=== PATIENT | male | born 1945 | race Caucasian/White ===

== ENCOUNTER 2021-07-01 15:49 | Emergency (ER) | payer MEDICAID ==
[~2021-07-01] VITALS: Ht 177.8 cm; Wt 68.2 kg
[2021-07-01 15:52] VITALS: BP 130/84
== END 2021-07-01 17:47 | disposition left against medical advice (07) ==
LOC: ER 15:50
DX: R07.81 Pleurodynia (principal)
CPT/HCPCS: 99281

== ENCOUNTER 2021-07-05 14:19 | Inpatient (IN) | payer MEDICARE, MEDICAID ==
[~2021-07-05] VITALS: Ht 170.2 cm; Wt 68.2 kg
[2021-07-05] MEDS ORDERED: heparin 10,000 units/1 ML INJ IV ONE (14:40)
[2021-07-05] MEDS ORDERED: aspirin 81mg tab.chew PO ONE (14:40)
[2021-07-05] MEDS ORDERED: heparin 25,000 UNIT/250ml bag 250 ML IV SCH (14:40)
--- NOTE | 2021-07-05 14:40 | NUR ---
Pt given initial NTG SL tab, next BP in 70's systolic. Fluid bolus initiated; NTG to be discontinued.
[2021-07-05] MEDS ORDERED: nitroGLYCERIN 0.4mg SUBLingual tab SL PRN (14:45)
[2021-07-05] MEDS ORDERED: heparin 10,000 units/1 ML INJ IV PRN (14:45)
[2021-07-05 14:48] LABS: BASOPHILS % (AUTO) 0.5 % (0-1); EOSINOPHILS # (AUTO) 0.1 X10'3 (0-0.9); EOSINOPHILS % (AUTO) 1.1 % (0-6); HEMATOCRIT 41.7 % (42.0-52.0); HEMOGLOBIN 14.1 g/dl (14.0-17.9); LYMPHOCYTES # (AUTO) 3.1 X10'3 (1.1-4.8); LYMPHOCYTES % (AUTO) 38.7 % (21-51); MEAN CORPUSCULAR HEMOGLOBIN 30.2 PG (27.0-31.0); MEAN CORPUSCULAR HGB CONC 33.9 g/dL (33.0-36.5); MEAN CORPUSCULAR VOLUME 89.2 FL (78-98); MEAN PLATELET VOLUME 8.3 FL (7.4-10.4); MONOCYTES # (AUTO) 0.5 X10'3 (0-0.9); MONOCYTES % (AUTO) 6.1 % (2-12); NEUTROPHILS # (AUTO) 4.2 X10'3 (1.8-7.7); NEUTROPHILS % (AUTO) 53.6 % (42-75); PLATELET COUNT 211 X10'3 (140-440); RED BLOOD COUNT 4.68 X10'6 (4.70-6.10); RED CELL DISTRIBUTION WIDTH 14.9 % (11.5-14.5); WHITE BLOOD COUNT 7.9 X10'3 (4.5-11.0)
[2021-07-05 15:00] LABS: ALANINE AMINOTRANSFERASE 20 U/L (12-78); ALBUMIN/GLOBULIN RATIO 0.7 (1.1-1.5); ALKALINE PHOSPHATASE 88 IU/L (46-116); ANION GAP 10 (8-16); ASPARTATE AMINO TRANSFERASE 38 U/L (10-37); BILIRUBIN,TOTAL 0.4 MG/DL (0.1-1.0); BLOOD UREA NITROGEN 16 MG/DL (7-18); BUN/CREATININE RATIO 15.2 (5.4-32.0); CALCIUM 8.9 MG/DL (8.5-10.1); CHLORIDE 106 MMOL/L (99-107); CREATININE 1.05 MG/DL (0.60-1.10); GLUCOSE 107 MG/DL (70-104); POTASSIUM 3.3 MMOL/L (3.5-5.1); SODIUM 145 MMOL/L (135-145); TOTAL CARBON DIOXIDE 29.5 MMOL/L (24-32); TOTAL PROTEIN 7.2 G/DL (6.4-8.2); eGFR 69 ML/MIN
[2021-07-05] MEDS ORDERED: ondansetron/PF 4mg/2ml inj IV ONE (15:00)
[2021-07-05 15:03] LABS: APTT 27 SECONDS (22-32)
[2021-07-05] MEDS ORDERED: LIDOCAINE 1% w/preservative (10 MG/ML) inj. 10mL VIAL ONE (15:06)
[2021-07-05] MEDS ORDERED: midazolam 1 mg/ML 2ml injection ONE (15:07)
[2021-07-05] MEDS ORDERED: fentaNYL/PF 50MCG/1 ML 2ML syringe ONE (15:07)
[2021-07-05] MEDS ORDERED: iohexol 350 MG/1 ML 200ml bottle ONE ×2 (15:07→16:14)
--- NOTE | 2021-07-05 15:18 | NUR ---
Pt to [facility] lab[facility]
[2021-07-05] MEDS ORDERED: heparin 1,000unit/ml 10ml vial 10 ML ONE (15:19)
[2021-07-05] MEDS ORDERED: verapamil 2.5 mg/ml inj IV ONE (15:19)
[2021-07-05] MEDS ORDERED: nitroGLYCERIN-Tridil 50MG/D5W 250 ML IV ONE (15:19)
[2021-07-05] MEDS ORDERED: heparin, porcine-25,000 units/D5-250ml premix IV ONE (15:30)
[2021-07-05] MEDS ORDERED: aspirin 81mg tab.chew ONE (15:30)
[2021-07-05] MEDS ORDERED: normal saline 1000ML IV soln ONE (15:30)
[2021-07-05] MEDS ORDERED: heparin 10,000 units/1 ML INJ ONE (15:30)
[2021-07-05] MEDS ORDERED: nitroGLYCERIN 0.4mg SUBLingual tab SL ONE (15:30)
[2021-07-05] MEDS ORDERED: ticagrelor 90mg tablet ONE (15:39)
[2021-07-05] MEDS ORDERED: NORepinephrine 1 mg/ml inj IV ONE ×2 (15:42→15:43)
[2021-07-05] MEDS ORDERED: iohexol 350 MG/ML 50ML vial IV ONE (16:26)
[2021-07-05] MEDS ORDERED: mag hydrox/Alum hydrox/simeth 30ml oral suspension PO PRN (16:55)
[2021-07-05] MEDS ORDERED: PERFLUTREN PROTEIN-A MICROSPHR (Optison) 0.22 MG/ML 3ML VIAL IV ONE (16:55)
[2021-07-05] MEDS ORDERED: magnesium 4gm in 100ml NS 100 ML IV PRN (16:55)
[2021-07-05] MEDS ORDERED: POTASSIUM BICARB 20meq eff tab 20 MEQ TABLET.EFF PO PRN ×2 (16:55)
[2021-07-05] MEDS ORDERED: acetaminophen 325mg tablet PO PRN (16:55)
[2021-07-05] MEDS ORDERED: potassium CL 10mEq/100ml bag 100 ML IV PRN (16:55)
[2021-07-05] MEDS ORDERED: ondansetron/PF 4mg/2ml inj IV PRN (16:55)
[2021-07-05] MEDS ORDERED: magnesium 2GM in 50ml NS 50 ML IV PRN (16:55)
[2021-07-05 17:30] VITALS: BP 106/56
[2021-07-05] MEDS ORDERED: insulin R INFUSION 1 ML IV SCH (17:30)
--- NOTE | 2021-07-05 17:30 | NUR ---
Patient in room PCU 3018. I have received report from chemical lab supervisor and had the opportunity to ask questions and assume patient care.
--- NOTE | 2021-07-05 17:45 | NUR ---
Started releasing the pressure in the band Q15M with 2 mLs.
[2021-07-05 18:00] VITALS: BP 112/56
--- NOTE | 2021-07-05 18:30 | NUR ---
Problems reprioritized. Patient report given, questions answered & plan of care reviewed with Kassy LUKE.
[2021-07-05] MEDS: nicotine 21mg patch - 24 hr TD SCH (19:00)
[2021-07-05] MEDS: HYDROcodone/acetaminophen 10/325mg tab PO SCH ×2 (20:00)
[2021-07-05] MEDS: docusate sod 100mg capsule PO SCH (20:00)
[2021-07-05] MEDS: K and/or MAG REPLACEMENT MC SCH (20:00)
[2021-07-05] MEDS ORDERED: NO HOME MEDS (21:46)
[2021-07-05 22:00] VITALS: BP 108/57
[2021-07-06 02:00] VITALS: BP 117/63
[2021-07-06] MEDS: HYDROcodone/acetaminophen 10/325mg tab PO SCH ×2 (02:00→02:49)
--- NOTE | 2021-07-06 06:15 | NUR ---
Patient in room PCU 3018. I have received report from Chico LUKE and had the opportunity to ask questions and assume patient care.
[2021-07-06] MEDS ORDERED: insulin regular, human inj. 100 UNITS in normal saline 100ml IV IV SCH (06:35)
[2021-07-06] MEDS ORDERED: HYDROcodone/acetaminophen 10/325mg tab PO PRN ×3 (06:35→06:40)
[2021-07-06 06:46] LABS: BASOPHILS % (AUTO) 0.2 % (0-1); EOSINOPHILS % (AUTO) 0.5 % (0-6); HEMATOCRIT 37.9 % (42.0-52.0); HEMOGLOBIN 12.4 g/dl (14.0-17.9); LYMPHOCYTES # (AUTO) 0.7 X10'3 (1.1-4.8); LYMPHOCYTES % (AUTO) 12.3 % (21-51); MEAN CORPUSCULAR HEMOGLOBIN 29.3 PG (27.0-31.0); MEAN CORPUSCULAR HGB CONC 32.7 g/dL (33.0-36.5); MEAN CORPUSCULAR VOLUME 89.6 FL (78-98); MEAN PLATELET VOLUME 8.9 FL (7.4-10.4); MONOCYTES # (AUTO) 0.4 X10'3 (0-0.9); MONOCYTES % (AUTO) 7.5 % (2-12); NEUTROPHILS # (AUTO) 4.7 X10'3 (1.8-7.7); NEUTROPHILS % (AUTO) 79.5 % (42-75); PLATELET COUNT 135 X10'3 (140-440); RED BLOOD COUNT 4.22 X10'6 (4.70-6.10); RED CELL DISTRIBUTION WIDTH 15.3 % (11.5-14.5); WHITE BLOOD COUNT 5.9 X10'3 (4.5-11.0)
--- NOTE | 2021-07-06 06:47 | NUR ---
Problems reprioritized. Patient report given, questions answered & plan of care reviewed with Chase.
[2021-07-06 07:00] VITALS: BP 114/65
[2021-07-06 07:01] LABS: ALANINE AMINOTRANSFERASE 40 U/L (12-78); ALBUMIN 2.5 G/DL (3.4-5.0); ALBUMIN/GLOBULIN RATIO 0.7 (1.1-1.5); ALKALINE PHOSPHATASE 95 IU/L (46-116); ANION GAP 3 (8-16); ASPARTATE AMINO TRANSFERASE 126 U/L (10-37); BILIRUBIN,TOTAL 0.4 MG/DL (0.1-1.0); BLOOD UREA NITROGEN 14 MG/DL (7-18); BUN/CREATININE RATIO 14.6 (5.4-32.0); CALCIUM 7.8 MG/DL (8.5-10.1); CHLORIDE 111 MMOL/L (99-107); CHOL/HDL RATIO 3.5 (0.00-4.99); CHOLESTEROL 155 MG/DL (0-200); CREATININE 0.96 MG/DL (0.60-1.10); GLUCOSE 103 MG/DL (70-104); HDL CHOLESTEROL 44 MG/DL (35-60); LDL CHOLESTEROL 91 MG/DL (50-100); MAGNESIUM 2.1 MG/DL (1.5-2.4); POTASSIUM 3.8 MMOL/L (3.5-5.1); SODIUM 144 MMOL/L (135-145); TOTAL PROTEIN 6.2 G/DL (6.4-8.2); TRIGLYCERIDES 85 MG/DL (20-135); eGFR 76 ML/MIN
--- NOTE | 2021-07-06 07:15 | NUR ---
Paged Dr. Rees about clarification about an order for insulin gtt. Dr. Rees called back and ordered to please cancelled the insulin gtt order.
[2021-07-06] MEDS ORDERED: ticagrelor 90mg tablet PO SCH (08:00)
[2021-07-06] MEDS ORDERED: aspirin 81mg tab.chew PO ONE (08:00)
[2021-07-06] MEDS: K and/or MAG REPLACEMENT MC SCH ×2 (08:00→20:00)
[2021-07-06] MEDS: docusate sod 100mg capsule PO SCH ×2 (08:23→20:57)
[2021-07-06] MEDS: atorvastatin 20mg tablet PO SCH (08:24)
[2021-07-06] MEDS: nicotine 21mg patch - 24 hr TD SCH (08:24)
[2021-07-06] MEDS: ticagrelor 90mg tablet PO SCH ×2 (08:24→20:57)
[2021-07-06] MEDS ORDERED: albuterol 2.5 MG/3 ML nebule NEB PRN (08:50)
[2021-07-06] MEDS ORDERED: ASPI-1071 PO (10:03)
[2021-07-06] MEDS ORDERED: ATOR20TA66 PO (10:03)
[2021-07-06] MEDS ORDERED: TICA90TA PO (10:03)
[2021-07-06 11:00] VITALS: BP 112/59
[2021-07-06] MEDS ORDERED: ipratropium/albuterol 3ml nebule NEB SCH (11:00)
[2021-07-06] MEDS: metoprolol tartrate 25mg tablet PO SCH ×2 (11:50→20:57)
[2021-07-06 15:00] VITALS: BP 113/55
[2021-07-06] MEDS ORDERED: LORazepam 1 MG tablet PO PRN (15:40)
[2021-07-06 18:00] VITALS: BP 102/49
--- NOTE | 2021-07-06 18:24 | NUR ---
Problems reprioritized. Patient report given, questions answered & plan of care reviewed with Jorge LUKE.
--- NOTE | 2021-07-06 18:40 | NUR ---
Patient in room PCU 3018. I have received report from MARLY Miller and had the opportunity to ask questions and assume patient care.
[2021-07-06] MEDS ORDERED: budesonide 0.5mg/2ml UD nebule IH SCH (20:00)
[2021-07-06] MEDS: HYDROcodone/acetaminophen 10/325mg tab PO PRN (21:00)
[2021-07-07 00:44] VITALS: BP 135/67
[2021-07-07] MEDS: HYDROcodone/acetaminophen 10/325mg tab PO PRN (02:18)
--- NOTE | 2021-07-07 04:55 | NUR ---
Patient up of and on all night, says he can't sleep, worried about not being discharged in the morning and seems anxious. I just gave him Ativan 0.25 PO and will monitor.
--- NOTE | 2021-07-07 06:07 | NUR ---
Problems reprioritized. Patient report given, questions answered & plan of care reviewed with MARLY Ruiz.
--- NOTE | 2021-07-07 06:33 | NUR ---
Patient in room PCU 3018. I have received report from Amber LUKE and had the opportunity to ask questions and assume patient care.
[2021-07-07 06:55] LABS: BASOPHILS % (AUTO) 0.2 % (0-1); EOSINOPHILS % (AUTO) 0.4 % (0-6); HEMATOCRIT 39.1 % (42.0-52.0); HEMOGLOBIN 13.2 g/dl (14.0-17.9); LYMPHOCYTES # (AUTO) 0.9 X10'3 (1.1-4.8); LYMPHOCYTES % (AUTO) 12.1 % (21-51); MEAN CORPUSCULAR HEMOGLOBIN 29.8 PG (27.0-31.0); MEAN CORPUSCULAR HGB CONC 33.7 g/dL (33.0-36.5); MEAN CORPUSCULAR VOLUME 88.5 FL (78-98); MEAN PLATELET VOLUME 8.9 FL (7.4-10.4); MONOCYTES # (AUTO) 0.4 X10'3 (0-0.9); MONOCYTES % (AUTO) 5.2 % (2-12); NEUTROPHILS # (AUTO) 6.4 X10'3 (1.8-7.7); NEUTROPHILS % (AUTO) 82.1 % (42-75); PLATELET COUNT 170 X10'3 (140-440); RED BLOOD COUNT 4.41 X10'6 (4.70-6.10); WHITE BLOOD COUNT 7.8 X10'3 (4.5-11.0)
[2021-07-07 07:00] VITALS: BP 145/82
[2021-07-07] MEDS: metoprolol tartrate 25mg tablet PO SCH (07:34)
[2021-07-07] MEDS: atorvastatin 20mg tablet PO SCH (07:35)
[2021-07-07] MEDS: ticagrelor 90mg tablet PO SCH (07:35)
[2021-07-07] MEDS: docusate sod 100mg capsule PO SCH (07:35)
[2021-07-07] MEDS: nicotine 21mg patch - 24 hr TD SCH (07:35)
[2021-07-07 07:44] LABS: ALANINE AMINOTRANSFERASE 35 U/L (12-78); ALBUMIN 2.8 G/DL (3.4-5.0); ALBUMIN/GLOBULIN RATIO 0.7 (1.1-1.5); ALKALINE PHOSPHATASE 104 IU/L (46-116); ANION GAP 5 (8-16); ASPARTATE AMINO TRANSFERASE 74 U/L (10-37); BILIRUBIN,TOTAL 0.6 MG/DL (0.1-1.0); BLOOD UREA NITROGEN 10 MG/DL (7-18); BUN/CREATININE RATIO 11.6 (5.4-32.0); CALCIUM 8.3 MG/DL (8.5-10.1); CHLORIDE 106 MMOL/L (99-107); CREATININE 0.86 MG/DL (0.60-1.10); GLUCOSE 91 MG/DL (70-104); MAGNESIUM 1.9 MG/DL (1.5-2.4); POTASSIUM 3.3 MMOL/L (3.5-5.1); SODIUM 140 MMOL/L (135-145); TOTAL CARBON DIOXIDE 28.8 MMOL/L (24-32); TOTAL PROTEIN 6.9 G/DL (6.4-8.2); eGFR 87 ML/MIN
[2021-07-07] MEDS: K and/or MAG REPLACEMENT MC SCH (08:00)
[2021-07-07] MEDS ORDERED: aspirin 81mg, enteric-coated 1 TAB TABLET.DR PO SCH (08:00)
[2021-07-07] MEDS ORDERED: spironolactone 25 MG tablet PO SCH (08:30)
[2021-07-07] MEDS ORDERED: EMPAGLIFLOZIN 10 MG TABLET PO SCH (08:30)
[2021-07-07] MEDS ORDERED: sacubitril/valsartan 24mg-26mg tablet PO SCH (08:30)
--- NOTE | 2021-07-07 09:54 | NUR ---
patient refusing tele and took out IV
[2021-07-07] MEDS ORDERED: EMPA10TA PO (10:44)
[2021-07-07] MEDS ORDERED: SPIR25TA PO (10:44)
[2021-07-07] MEDS ORDERED: SACU1TAB PO (10:44)
[2021-07-07] MEDS ORDERED: NITR0.4T51 SL (10:44)
[2021-07-07] MEDS ORDERED: NICO-687 TD (10:44)
[2021-07-07] MEDS ORDERED: COR3.125T PO (10:44)
--- NOTE | 2021-07-07 10:53 | NUR ---
Page Sent promotional table spacer PAGER ID: [phone] MESSAGE: [id number] Jenkins. current vitals - temp 98.1, HR 62, 18 RR, 90% RA, 125/40. Sara @[phone]
[2021-07-07 11:00] VITALS: BP 125/70
--- NOTE | 2021-07-07 12:33 | NUR ---
nicotine patch removed prior to DC
--- NOTE | 2021-07-07 13:43 | NUR ---
Patient was DC to home with . picked up patient in a private vehicle. PIV was removed with cannula intact. RX were called into [facility]. DC instructions and warning s/s were reviewed with patient and and both verbalized understanding. Patient was alert, oriented, and appropriate at time of dc . Patient was wheeled to front of building where picked up .
[2021-07-07] MEDS ORDERED: carVEDilol 3.125mg tablet PO SCH (20:00)
== END 2021-07-07 12:57 | disposition home or self-care (01) | DRG 246 ==
LOC: ER 14:20 → PCU 3S 16:59
PROVIDERS: ADMIT Family Medicine; ATTEND Family Medicine
PROC: 4A023N7 Measurement of Cardiac Sampling and Pressure, Left Heart, Percutaneous Approach (ICD-10-PCS; principal; 2021-07-05)
PROC: 027035Z Dilation of Coronary Artery, One Artery with Two Drug-eluting Intraluminal Devices, Percutaneous Approach (ICD-10-PCS; 2021-07-05)
PROC: B2111ZZ Fluoroscopy of Multiple Coronary Arteries using Low Osmolar Contrast (ICD-10-PCS; 2021-07-05)
DX: I21.19 ST elevation (STEMI) myocardial infarction involving other coronary artery of inferior wall (principal); I50.21 Acute systolic (congestive) heart failure; I42.0 Dilated cardiomyopathy; I25.10 Atherosclerotic heart disease of native coronary artery without angina pectoris; E87.6 Hypokalemia; E78.5 Hyperlipidemia, unspecified; I25.5 Ischemic cardiomyopathy; I95.9 Hypotension, unspecified; M47.892 Other spondylosis, cervical region; E78.00 Pure hypercholesterolemia, unspecified; M47.896 Other spondylosis, lumbar region; F17.210 Nicotine dependence, cigarettes, uncomplicated; Z79.02 Long term (current) use of antithrombotics/antiplatelets; Z79.82 Long term (current) use of aspirin; Z79.84 Long term (current) use of oral hypoglycemic drugs; Z71.6 Tobacco abuse counseling
CPT/HCPCS: 93306; 93458; 99291; C9606; 36415; 71045; 80053; 80061; 83735; 83880; 84484; 85025; 85610; 85730; 93005; 97116; 97161; 97530; A4620; C1725; C1751; C1769; C1874; C1892; C1894; G0378; J1644; J2250; J2405; J3010; J3490; J7030; Q9967

== ENCOUNTER 2021-08-06 06:40 | Emergency (ER) | payer MEDICARE, MEDICAID ==
[~2021-08-06] VITALS: Ht 177.8 cm; Wt 63.6 kg
[~2021-08-06 06:40] MED LIST: ASPI-1071 PO; ATOR20TA66 PO; COR3.125T PO; EMPA10TA PO; NICO-687 TD; NITR0.4T51 SL; SACU1TAB PO; SPIR25TA PO; TICA90TA PO
[2021-08-06] MEDS ORDERED: HYDROcodone/acetaminophen 10/325mg tab PO ONE (08:30)
[2021-08-06] MEDS ORDERED: orphenadrine citrate 60mg/2ml inj. IM ONE (08:30)
--- NOTE | 2021-08-06 08:30 | NUR ---
Dr. Mancini at bedside.
--- NOTE | 2021-08-06 08:41 | NUR ---
Pt to xray.
[2021-08-06] MEDS ORDERED: HYDR-3972 PO (09:47)
[2021-08-06 10:03] VITALS: BP 123/72
== END 2021-08-06 10:07 | disposition home or self-care (01) ==
LOC: ER 06:40
DX: S32.000A Wedge compression fracture of unspecified lumbar vertebra, initial encounter for closed fracture (principal); S09.90XA Unspecified injury of head, initial encounter; M54.50 Low back pain, unspecified; Z79.82 Long term (current) use of aspirin; Z79.899 Other long term (current) drug therapy; W19.XXXA Unspecified fall, initial encounter; Y93.89 Activity, other specified; Y92.89 Other specified places as the place of occurrence of the external cause; Y99.8 Other external cause status
CPT/HCPCS: 72100; 96372; 99283; J2360

== ENCOUNTER → 2021-08-09 04:59 | Emergency (ER) | payer MEDICARE, MEDICAID ==
[~2021-08-09] VITALS: Ht 177.8 cm; Wt 62.0 kg
[~2021-08-09 04:59] MED LIST changes: +ASPI-611 PO; +ATOR-2 PO; +CARV3.122 PO; +CEFD300C3 PO; +DEC4T PO; +HYDR-3972 PO; +NICO-687 TOP
[2021-08-09 05:03] VITALS: BP 141/82
== END | disposition left against medical advice (07) ==
LOC: ER 04:59
DX: M54.2 Cervicalgia (principal); Z53.21 Procedure and treatment not carried out due to patient leaving prior to being seen by health care provider

== ENCOUNTER 2021-09-12 12:39 | Emergency (ER) | payer MEDICARE, MEDICAID ==
[~2021-09-12] VITALS: Ht 177.8 cm; Wt 74.1 kg
[~2021-09-12 12:39] MED LIST changes: -ASPI-1071 PO; -ATOR20TA66 PO; -COR3.125T PO; -NICO-687 TD
[2021-09-12] MEDS ORDERED: acetaminophen 325mg tablet PO ONE (14:30)
[2021-09-12] MEDS ORDERED: HYDROcodone/acetaminophen 5mg/325mg tablet PO ONE (15:25)
[2021-09-12] MEDS ORDERED: bacitracin 15gm ointment TP ONE (15:25)
[2021-09-12] MEDS ORDERED: ondansetron 4mg rapidly disintigrating tab PO ONE (15:25)
[2021-09-12] MEDS ORDERED: HYDR-3965 PO ×2 (15:32→17:20)
[2021-09-12 15:52] VITALS: BP 118/71
== END 2021-09-12 15:55 | disposition home or self-care (01) ==
LOC: ER 12:41
DX: S01.01XA Laceration without foreign body of scalp, initial encounter (principal); M54.2 Cervicalgia; I11.0 Hypertensive heart disease with heart failure; Z79.82 Long term (current) use of aspirin; Z79.899 Other long term (current) drug therapy; W19.XXXA Unspecified fall, initial encounter; Y93.89 Activity, other specified; Y92.89 Other specified places as the place of occurrence of the external cause; Y99.8 Other external cause status
CPT/HCPCS: 12002; 70450; 72125; 99284; A6449

== ENCOUNTER 2021-10-09 08:32 | Emergency (ER) | payer MEDICARE, MEDICAID ==
[~2021-10-09] VITALS: Ht 177.8 cm; Wt 54.5 kg
[~2021-10-09 08:32] MED LIST changes: -CEFD300C3 PO; -DEC4T PO; +HYDR-3965 PO
[2021-10-09 09:05] LABS: BASOPHILS % (AUTO) 0.4 % (0-1); EOSINOPHILS # (AUTO) 0.1 X10'3 (0-0.9); EOSINOPHILS % (AUTO) 0.7 % (0-6); HEMATOCRIT 40.1 % (42.0-52.0); HEMOGLOBIN 13.5 g/dl (14.0-17.9); LYMPHOCYTES # (AUTO) 1.1 X10'3 (1.1-4.8); LYMPHOCYTES % (AUTO) 14.5 % (21-51); MEAN CORPUSCULAR HEMOGLOBIN 31.3 PG (27.0-31.0); MEAN CORPUSCULAR HGB CONC 33.6 g/dL (33.0-36.5); MEAN CORPUSCULAR VOLUME 93.2 FL (78-98); MEAN PLATELET VOLUME 8.5 FL (7.4-10.4); MONOCYTES # (AUTO) 0.5 X10'3 (0-0.9); NEUTROPHILS % (AUTO) 78.4 % (42-75); PLATELET COUNT 230 X10'3 (140-440); RED BLOOD COUNT 4.31 X10'6 (4.70-6.10); RED CELL DISTRIBUTION WIDTH 15.6 % (11.5-14.5); WHITE BLOOD COUNT 7.7 X10'3 (4.5-11.0)
[2021-10-09 09:17] LABS: ALANINE AMINOTRANSFERASE 12 U/L (12-78); ALBUMIN/GLOBULIN RATIO 0.7 (1.1-1.5); ALKALINE PHOSPHATASE 107 IU/L (46-116); ANION GAP 8 (8-16); ASPARTATE AMINO TRANSFERASE 12 U/L (10-37); BILIRUBIN,TOTAL 0.5 MG/DL (0.1-1.0); BLOOD UREA NITROGEN 15 MG/DL (7-18); BUN/CREATININE RATIO 15.2 (5.4-32.0); CALCIUM 8.6 MG/DL (8.5-10.1); CHLORIDE 106 MMOL/L (99-107); CREATININE 0.99 MG/DL (0.60-1.10); GLUCOSE 98 MG/DL (70-104); POTASSIUM 4.8 MMOL/L (3.5-5.1); SODIUM 144 MMOL/L (135-145); TOTAL CARBON DIOXIDE 30.3 MMOL/L (24-32); TOTAL PROTEIN 7.6 G/DL (6.4-8.2); eGFR 74 ML/MIN
[2021-10-09 09:44] LABS: CLARITY,URINE CLEAR (Clear); COLOR,URINE YELLOW (Yellow); GLUCOSE, URINE >=1000 mg/dl (Neg); KETONES,URINE NEGATIVE (Neg); LEUKOCYTE ESTERASE ,URINE NEGATIVE (Neg); NITRITES, URINE NEGATIVE (Neg); OCCULT BLOOD,URINE NEGATIVE (Neg); PH,URINE 5.5 (4.8-8.0); PROTEIN,URINE NEGATIVE (Neg); UROBILINOGEN,URINE 0.2 E.U/dL (0.2-1.0)
[2021-10-09 09:46] LABS: UA COLLECTION TYPE CLN CATCH MIDSTREAM
[2021-10-09 09:52] LABS: MUCUS STRANDS FEW /LPF (Neg); SQUAMOUS EPITHELIAL CELL,UR FEW /LPF (FEW)
[2021-10-09 09:53] LABS: BACTERIA,URINE 1+ /HPF (Neg); WBC,URINE 0-4 /HPF (0-4)
[2021-10-09] MEDS ORDERED: CYCL-1 PO (10:16)
[2021-10-09] MEDS ORDERED: LIDO700A32 TOP (10:16)
[2021-10-09 10:23] VITALS: BP 129/72
== END 2021-10-09 10:25 | disposition home or self-care (01) ==
LOC: ER 08:33
DX: S39.012A Strain of muscle, fascia and tendon of lower back, initial encounter (principal); R63.4 Abnormal weight loss; M62.838 Other muscle spasm; I11.0 Hypertensive heart disease with heart failure; I50.9 Heart failure, unspecified; J44.9 Chronic obstructive pulmonary disease, unspecified; W19.XXXA Unspecified fall, initial encounter; Y93.89 Activity, other specified; Y92.89 Other specified places as the place of occurrence of the external cause; Y99.8 Other external cause status
CPT/HCPCS: 36415; 71045; 74176; 80053; 81001; 85025; 99285

== ENCOUNTER 2022-04-22 06:47 | Emergency (ER) | payer MEDICARE, MEDICAID ==
[~2022-04-22] VITALS: Ht 177.8 cm; Wt 51.0 kg
[~2022-04-22 06:47] MED LIST changes: +CYCL-1 PO; -HYDR-3965 PO; +LIDO700A32 TOP
[2022-04-22 07:11] LABS: BASOPHILS # (AUTO) 0.1 X10'3 (0-0.2); BASOPHILS % (AUTO) 0.7 % (0-1); EOSINOPHILS # (AUTO) 0.2 X10'3 (0-0.9); EOSINOPHILS % (AUTO) 2.7 % (0-6); HEMOGLOBIN 14.1 g/dl (14.0-17.9); LYMPHOCYTES # (AUTO) 1.3 X10'3 (1.1-4.8); MEAN CORPUSCULAR HEMOGLOBIN 31.4 PG (27.0-31.0); MEAN CORPUSCULAR HGB CONC 33.5 g/dL (33.0-36.5); MEAN CORPUSCULAR VOLUME 93.9 FL (78-98); MONOCYTES # (AUTO) 0.4 X10'3 (0-0.9); MONOCYTES % (AUTO) 5.3 % (2-12); NEUTROPHILS # (AUTO) 6.3 X10'3 (1.8-7.7); NEUTROPHILS % (AUTO) 75.3 % (42-75); PLATELET COUNT 246 X10'3 (140-440); RED BLOOD COUNT 4.47 X10'6 (4.70-6.10); RED CELL DISTRIBUTION WIDTH 14.5 % (11.5-14.5); WHITE BLOOD COUNT 8.4 X10'3 (4.5-11.0)
[2022-04-22 07:21] LABS: ALANINE AMINOTRANSFERASE 8 U/L (12-78); ALBUMIN 3.5 G/DL (3.4-5.0); ALBUMIN/GLOBULIN RATIO 0.8 (1.1-1.5); ALKALINE PHOSPHATASE 88 IU/L (46-116); ANION GAP 8 (8-16); ASPARTATE AMINO TRANSFERASE 16 U/L (10-37); BILIRUBIN,TOTAL 0.8 MG/DL (0.1-1.0); BLOOD UREA NITROGEN 13 MG/DL (7-18); BUN/CREATININE RATIO 17.1 (5.4-32.0); CALCIUM 9.1 MG/DL (8.5-10.1); CHLORIDE 101 MMOL/L (99-107); CREATININE 0.76 MG/DL (0.60-1.10); GLUCOSE 107 MG/DL (70-104); POTASSIUM 3.3 MMOL/L (3.5-5.1); SODIUM 138 MMOL/L (135-145); TOTAL CARBON DIOXIDE 28.8 MMOL/L (24-32); TOTAL PROTEIN 8.1 G/DL (6.4-8.2); eGFR > 90 ML/MIN
[2022-04-22] MEDS ORDERED: ipratropium/albuterol 3ml nebule NEB ONE (09:15)
[2022-04-22] MEDS ORDERED: methylPREDNISolone sod succ 125mg/2ml vial IV ONE (09:15)
--- NOTE | 2022-04-22 09:17 | NUR ---
RT PAGED TO RM 13 FOR BLOOD GAS
--- NOTE | 2022-04-22 09:24 | NUR ---
RN PAGED RT FOR NEB TX AT THIS TIME
[2022-04-22] MEDS ORDERED: triamcinolone acetonide 40mg/ml inj IM ONE (10:10)
[2022-04-22 10:55] VITALS: BP 147/82
== END 2022-04-22 10:58 | disposition home or self-care (01) ==
LOC: ER 06:48
DX: J44.1 Chronic obstructive pulmonary disease with (acute) exacerbation (principal); I50.21 Acute systolic (congestive) heart failure; Z72.0 Tobacco use; I11.9 Hypertensive heart disease without heart failure; Z79.899 Other long term (current) drug therapy; Z79.82 Long term (current) use of aspirin
CPT/HCPCS: 36415; 71045; 80053; 83735; 83880; 84484; 85025; 93005; 94640; 96374; 99285; J2930; 94760